=== PATIENT | male | born 1945 | race Caucasian/White ===

== ENCOUNTER 2016-12-27 12:52 | Outpatient (RCR) | payer MEDICARE, OTHER ==
[2014-06-05 13:12] VITALS: BP 170/98
[~2016-12-27 12:52] MED LIST: METFORMIN500 MG PO; PREDNISONE10 M1 PO; ZESTRIL 5MG5 MG PO
== END 2016-12-27 15:13 | disposition still patient (30) ==
LOC: PT 12:52
DX: M11.262 Other chondrocalcinosis, left knee (principal)
CPT/HCPCS: G8978-GP; G8979-GP

== ENCOUNTER 2017-10-03 16:28 | Emergency (ER) | payer MEDICARE, OTHER ==
[~2017-10-03] VITALS: Ht 177.8 cm; Wt 125.2 kg
[~2017-10-03 16:28] MED LIST changes: +GLUCOPHAGE PO; -METFORMIN500 MG PO; -ZESTRIL 5MG5 MG PO; +ZESTRIL10 M1 PO
[2017-10-03] MEDS ORDERED: TRULICITY1.5 MG/0.5 SC (16:50)
[2017-10-03 19:21] VITALS: BP 171/81
== END 2017-10-03 19:21 | disposition home or self-care (01) ==
LOC: ED 16:28
DX: I10 Essential (primary) hypertension (principal); T46.4X6A Underdosing of angiotensin-converting-enzyme inhibitors, initial encounter; Z91.128 Patient's intentional underdosing of medication regimen for other reason; E11.9 Type 2 diabetes mellitus without complications; Z79.84 Long term (current) use of oral hypoglycemic drugs

== ENCOUNTER → 2017-10-06 | Outpatient (CLI) | payer MEDICARE ==
[2017-10-03 19:21] VITALS: BP 171/81
[~2017-10-06] MED LIST changes: +TRULICITY1.5 MG/0.5 SC
[2017-10-06 10:32] LABS: BUN/CREATININE RATIO 25.6 (6.0-26.0); CALCIUM 9.5 mg/dL (8.4-10.2)
== END ==
LOC: LAB 10:07
PROVIDERS: Family Medicine
DX: E87.5 Hyperkalemia (principal)

== ENCOUNTER → 2018-07-18 | Outpatient (CLI) | payer MEDICARE ==
[2018-07-18 15:21] LABS: EOS # 0.2 (0.04-0.40); EOS % 3.5 % (0.0-4.0); HEMATOCRIT 34.1 % (42.0-52.0); HEMOGLOBIN 11.3 g/dL (13.5-18.0); LYMPH# 1.5 (1.50-4.00); MEAN CELL VOLUME 92 fl (78-100); MEAN CORPUSCULAR HEMOGLOBIN 30 pg (27-31); MEAN CORPUSCULAR HGB CONC 33 g/dL (33-37); MEAN PLATELET VOLUME 10.9 fl (7.4-10.4); MONO # 0.4 (0.20-0.80); NEU # 2.2 (1.40-6.50); PLATELET COUNT 171 K/mm3 (130-400); RED BLOOD COUNT 3.72 M/mm3 (4.20-5.60); RED CELL DISTRIBUTION WIDTH 13.7 % (11.5-14.5); WHITE BLOOD COUNT 4.2 K/mm3 (4.8-10.8)
[2018-07-18 15:45] LABS: CALCIUM 9.8 mg/dL (8.4-10.2); POTASSIUM 4.5 mmol/L (3.6-5.0)
== END ==
LOC: LAB 14:59
PROVIDERS: Family Medicine
DX: R07.9 Chest pain, unspecified (principal)

== ENCOUNTER 2018-11-06 12:14 | Emergency (ER) | payer MEDICARE, OTHER ==
[~2018-11-06] VITALS: Ht 180.3 cm; Wt 122.3 kg
[2018-11-06 13:12] LABS: EOS # 0.1 (0.04-0.40); EOS % 3.5 % (0.0-4.0); HEMATOCRIT 38.7 % (42.0-52.0); HEMOGLOBIN 13.1 g/dL (13.5-18.0); LYMPH# 1.1 (1.50-4.00); MEAN CELL VOLUME 90 fl (78-100); MEAN CORPUSCULAR HEMOGLOBIN 30 pg (27-31); MEAN CORPUSCULAR HGB CONC 34 g/dL (33-37); MEAN PLATELET VOLUME 11.2 fl (7.4-10.4); MONO # 0.4 (0.20-0.80); NEU # 2.2 (1.40-6.50); PLATELET COUNT 156 K/mm3 (130-400); RED BLOOD COUNT 4.31 M/mm3 (4.20-5.60); RED CELL DISTRIBUTION WIDTH 13.4 % (11.5-14.5); WHITE BLOOD COUNT 3.7 K/mm3 (4.8-10.8)
[2018-11-06 13:15] LABS: ALBUMIN 3.6 g/dL (3.4-4.8); POTASSIUM 4.5 mmol/L (3.5-5.1); SODIUM 140 mmol/L (136-145)
[2018-11-06 13:16] LABS: CALCIUM 9.8 mg/dL (8.3-10.5)
[2018-11-06 13:17] LABS: GLUCOSE 133 mg/dL (75-110)
[2018-11-06 13:18] LABS: TOTAL PROTEIN 7.1 g/dL (6.2-8.1)
[2018-11-06 13:19] LABS: CARBON DIOXIDE 25 mmol/L (23-31); TOTAL BILIRUBIN 0.4 mg/dL (0.2-1.2)
[2018-11-06 13:23] LABS: AST-SGOT 19 U/L (5-34)
[2018-11-06 13:24] LABS: ALT/SGPT 22 U/L (0-55)
[2018-11-06 13:30] LABS: TROPONIN-I < 0.03 ng/mL (<0.030)
[2018-11-06 13:57] LABS: URINE APPEARANCE CLEAR; URINE COLOR YELLOW; URINE GLUCOSE NEGATIVE (NEGATIVE); URINE PROTEIN(semi-quant) 3+ mg/dL (NEGATIVE)
[2018-11-06 13:58] LABS: URINE BILIRUBIN NEGATIVE (NEGATIVE); URINE BLOOD NEGATIVE (NEGATIVE); URINE KETONE NEGATIVE (NEGATIVE); URINE LEUKOCYTE ESTERASE NEGATIVE (NEGATIVE); URINE MUCUS PRESENT (NOT PRESENT); URINE NITRATE NEGATIVE (NEGATIVE); URINE UROBILINOGEN NORMAL (NORMAL); URINE WBC 0-1 /hpf (0-3)
[2018-11-06 14:40] VITALS: BP 140/72
== END 2018-11-06 14:40 | disposition home or self-care (01) ==
LOC: ED 12:14
PROVIDERS: Physician Assistant
DX: R11.0 Nausea (principal); R00.1 Bradycardia, unspecified; E11.9 Type 2 diabetes mellitus without complications; Z87.891 Personal history of nicotine dependence; Z98.890 Other specified postprocedural states; Z98.818 Other dental procedure status

== ENCOUNTER → 2020-03-02 | Outpatient (CLI) | payer MEDICARE, OTHER | LOC: LAB 07:19 | DX: Z20.828 Contact with and (suspected) exposure to other viral communicable diseases (principal) ==

== ENCOUNTER → 2020-03-05 | Day surgery (SDC) | payer MEDICARE, OTHER | LOC: MSO 07:59 | DX: Z12.11 Encounter for screening for malignant neoplasm of colon (principal); Z86.010 Personal history of colon polyps; D12.3 Benign neoplasm of transverse colon; D50.9 Iron deficiency anemia, unspecified; K21.9 Gastro-esophageal reflux disease without esophagitis; E66.01 Morbid (severe) obesity due to excess calories; E11.9 Type 2 diabetes mellitus without complications; K62.5 Hemorrhage of anus and rectum; K25.9 Gastric ulcer, unspecified as acute or chronic, without hemorrhage or perforation; Z79.84 Long term (current) use of oral hypoglycemic drugs; Z87.891 Personal history of nicotine dependence; Z98.52 Vasectomy status; Z79.82 Long term (current) use of aspirin | CPT/HCPCS: 00811; J2704; J3490; J7030 ==

== ENCOUNTER → 2021-09-03 | Outpatient (CLI) | payer MEDICARE, OTHER | LOC: AMSURD 11:28 | DX: R00.1 Bradycardia, unspecified (principal) ==

== ENCOUNTER → 2023-05-09 | Outpatient (CLI) | payer MEDICARE, OTHER | LOC: AMSURD 11:13 | DX: R00.1 Bradycardia, unspecified (principal) ==

== ENCOUNTER 2023-09-18 17:30 | Emergency (ER) | payer MEDICARE, OTHER ==
[~2023-09-18] VITALS: Ht 177.8 cm; Wt 122.3 kg
[2023-09-18 18:04] LABS: BASO # 0.02 K/mm3 (0.02-0.10); EOS # 0.12 K/mm3 (0.04-0.40); EOS % 2.5 % (0.0-4.0); HEMATOCRIT 35.3 % (42.0-52.0); HEMOGLOBIN 11.8 g/dL (13.5-18.0); LYMPH# 1.21 K/mm3 (1.50-4.00); MEAN CELL VOLUME 92 fl (78-100); MEAN CORPUSCULAR HEMOGLOBIN 31 pg (27-31); MEAN CORPUSCULAR HGB CONC 33 g/dL (33-37); MEAN PLATELET VOLUME 10.8 fl (7.4-10.4); MONO # 0.38 K/mm3 (0.20-0.80); NEU # 3.02 K/mm3 (1.40-6.50); PLATELET COUNT 144 K/mm3 (130-400); RED BLOOD COUNT 3.85 M/mm3 (4.20-5.60); WHITE BLOOD COUNT 4.8 K/mm3 (4.8-10.8)
[2023-09-18 18:11] LABS: ALBUMIN 3.8 g/dL (3.4-4.8)
[2023-09-18 18:14] LABS: TOTAL PROTEIN 6.9 g/dL (6.2-8.1)
[2023-09-18 18:16] LABS: TOTAL BILIRUBIN 0.3 mg/dL (0.2-1.2)
[2023-09-18 18:18] LABS: D-DIMER 2.45 mg/L FEU (0.15-0.50)
[2023-09-18 18:28] LABS: TROPONIN-I 0.101 ng/mL (0.00-0.033)
[2023-09-18] MEDS ORDERED: amLODIPine 5 MG TAB PO ONE (20:00)
[2023-09-18 20:53] VITALS: BP 179/93
== END 2023-09-18 20:53 | disposition short-term general hospital (02) ==
LOC: ED 17:30
PROVIDERS: Physician Assistant
DX: R11.0 Nausea (principal); N17.9 Acute kidney failure, unspecified; R79.1 Abnormal coagulation profile; R79.89 Other specified abnormal findings of blood chemistry; Z91.040 Latex allergy status

== ENCOUNTER 2023-10-12 15:37 | Emergency (ER) | payer MEDICARE, OTHER ==
[~2023-10-12] VITALS: Ht 177.8 cm; Wt 123.2 kg
[2023-10-12] MEDS ORDERED: CETIRIZINE HCL10 MG PO (15:45)
[2023-10-12] MEDS ORDERED: METOPROLOL SUCC50 M1 PO (15:46)
[2023-10-12] MEDS ORDERED: CARVEDILOL12.5 MG PO (15:46)
[2023-10-12] MEDS ORDERED: FUROSEMIDE20 MG PO (15:46)
[2023-10-12] MEDS ORDERED: FLOMAX0.4 MG PO (15:47)
[2023-10-12] MEDS ORDERED: OZEMPIC1 MG/0.71 SQ (15:47)
[2023-10-12 16:28] LABS: BASO # 0.03 K/mm3 (0.02-0.10); EOS # 0.16 K/mm3 (0.04-0.40); EOS % 3.7 % (0.0-4.0); HEMATOCRIT 32.5 % (42.0-52.0); HEMOGLOBIN 11.2 g/dL (13.5-18.0); LYMPH# 1.32 K/mm3 (1.50-4.00); MEAN CELL VOLUME 90 fl (78-100); MEAN CORPUSCULAR HEMOGLOBIN 31 pg (27-31); MEAN CORPUSCULAR HGB CONC 35 g/dL (33-37); MEAN PLATELET VOLUME 10.5 fl (7.4-10.4); MONO # 0.39 K/mm3 (0.20-0.80); NEU # 2.36 K/mm3 (1.40-6.50); PLATELET COUNT 136 K/mm3 (130-400); WHITE BLOOD COUNT 4.3 K/mm3 (4.8-10.8)
[2023-10-12 16:31] LABS: ALBUMIN 3.5 g/dL (3.4-4.8)
[2023-10-12 16:34] LABS: TOTAL PROTEIN 6.5 g/dL (6.2-8.1)
[2023-10-12 16:36] LABS: TOTAL BILIRUBIN 0.4 mg/dL (0.2-1.2)
[2023-10-12] MEDS ORDERED: NORCO 325 MG-51 TA1 PO (16:51)
[2023-10-12] MEDS ORDERED: Iohexol 350 - 100 ML VIAL IV ONE (17:07)
[2023-10-12 18:35] VITALS: BP 158/110
== END 2023-10-12 18:35 ==
LOC: ED 15:37
PROVIDERS: Family Medicine
DX: M79.89 Other specified soft tissue disorders (principal); D72.819 Decreased white blood cell count, unspecified; I25.10 Atherosclerotic heart disease of native coronary artery without angina pectoris; E11.22 Type 2 diabetes mellitus with diabetic chronic kidney disease; N18.9 Chronic kidney disease, unspecified; D63.1 Anemia in chronic kidney disease; Z91.040 Latex allergy status
CPT/HCPCS: J7120; Q9967

== ENCOUNTER 2023-10-14 23:23 | Emergency (ER) | payer MEDICARE, OTHER ==
[~2023-10-14] VITALS: Ht 177.8 cm; Wt 124.8 kg
[~2023-10-14 23:23] MED LIST changes: +CARVEDILOL12.5 MG PO; +CETIRIZINE HCL10 MG PO; +FLOMAX0.4 MG PO; +FUROSEMIDE20 MG PO; +METOPROLOL SUCC50 M1 PO; +NORCO 325 MG-51 TA1 PO; +OZEMPIC1 MG/0.71 SQ
[2023-10-14 23:45] LABS: BASO # 0.04 K/mm3 (0.02-0.10); EOS # 0.18 K/mm3 (0.04-0.40); EOS % 4.4 % (0.0-4.0); HEMATOCRIT 34.3 % (42.0-52.0); HEMOGLOBIN 11.6 g/dL (13.5-18.0); LYMPH# 1.45 K/mm3 (1.50-4.00); MEAN CELL VOLUME 91 fl (78-100); MEAN CORPUSCULAR HEMOGLOBIN 31 pg (27-31); MEAN CORPUSCULAR HGB CONC 34 g/dL (33-37); MEAN PLATELET VOLUME 10.1 fl (7.4-10.4); MONO # 0.41 K/mm3 (0.20-0.80); NEU # 2.04 K/mm3 (1.40-6.50); PLATELET COUNT 144 K/mm3 (130-400); RED BLOOD COUNT 3.78 M/mm3 (4.20-5.60); RED CELL DISTRIBUTION WIDTH 13.1 % (11.5-14.5); WHITE BLOOD COUNT 4.1 K/mm3 (4.8-10.8)
[2023-10-15] MEDS ORDERED: ASPIRIN 81M81 MG/TA2 PO (00:12)
[2023-10-15] MEDS ORDERED: FISH OIL1 IU (00:13)
[2023-10-15] MEDS ORDERED: ZETIA10 M1 (00:13)
[2023-10-15] MEDS ORDERED: GARLIC100 M1 (00:14)
[2023-10-15] MEDS ORDERED: B12 ACTIVE1000 MCG (00:14)
[2023-10-15] MEDS ORDERED: FLONASE ALLERG9.9 ML (00:14)
[2023-10-15 00:17] LABS: ALBUMIN 3.7 g/dL (3.4-4.8); SODIUM 143 mmol/L (136-145)
[2023-10-15 00:19] LABS: CALCIUM 10.5 mg/dL (8.3-10.5)
[2023-10-15 00:20] LABS: GLUCOSE 134 mg/dL (75-110); TOTAL PROTEIN 6.7 g/dL (6.2-8.1)
[2023-10-15 00:21] LABS: CARBON DIOXIDE 25 mmol/L (23-31)
[2023-10-15 00:22] LABS: TOTAL BILIRUBIN 0.3 mg/dL (0.2-1.2)
[2023-10-15 00:25] LABS: AST-SGOT 14 U/L (5-34)
[2023-10-15 00:26] LABS: ALT/SGPT 14 U/L (0-55)
[2023-10-15] MEDS ORDERED: Doxycycline Hyclate 100 MG in NS 250 ML IV ONE (00:30)
[2023-10-15] MEDS ORDERED: cefTRIAXone 1 G in Water For Injection,Sterile 10 ML IV ONE (00:30)
[2023-10-15 00:32] LABS: TROPONIN-I < 0.030 ng/mL (0.00-0.033)
[2023-10-15] MEDS ORDERED: hydrALAZINE 20 MG/ML 1 ML VIAL IV ONE (01:30)
[2023-10-15 02:30] VITALS: BP 122/95
== END 2023-10-15 02:30 | disposition short-term general hospital (02) ==
LOC: ED 23:23
PROVIDERS: Family Medicine
DX: J18.1 Lobar pneumonia, unspecified organism (principal); I12.9 Hypertensive chronic kidney disease with stage 1 through stage 4 chronic kidney disease, or unspecified chronic kidney disease; E11.22 Type 2 diabetes mellitus with diabetic chronic kidney disease; N18.32 Chronic kidney disease, stage 3b; N17.9 Acute kidney failure, unspecified; E66.01 Morbid (severe) obesity due to excess calories; R94.31 Abnormal electrocardiogram [ECG] [EKG]; E11.21 Type 2 diabetes mellitus with diabetic nephropathy; Z95.0 Presence of cardiac pacemaker; Z68.39 Body mass index [BMI] 39.0-39.9, adult; Z91.040 Latex allergy status; Z79.82 Long term (current) use of aspirin; Z79.4 Long term (current) use of insulin; Z79.899 Other long term (current) drug therapy
CPT/HCPCS: J0360; J0696; J7050